=== PATIENT | male | born 1965 | race Caucasian/White ===

== ENCOUNTER 2019-01-25 11:18 | Emergency (ER) | payer MEDICARE ==
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
[2019-01-25] MEDS ORDERED: Sodium Chloride 0.9% 10 ML Syringe FLUSH PRN (13:14)
[2019-01-25] MEDS ORDERED: Naloxone 0.4 MG/ML SDV IVPUSH PRN (14:00)
--- NOTE | 2019-01-25 14:25 | CRLCR ---
HISTORY: Behavioral changes. TECHNIQUE: Two views of the chest. COMPARISON: No prior. FINDINGS: Cardiac size and pulmonary vasculature within normal limits. There is no acute lung infiltrate or pulmonary edema. No pneumothorax or pleural effusion. No acute bony abnormality. IMPRESSION: No acute disease. Dictated by José Schofield MD @ 01/25/2019 2:24:58 PM Dictated by: José Schofield MD @ 01/25/2019 14:25:01 (Electronically Signed)
== END 2019-01-25 20:20 | disposition home or self-care (01) ==
LOC: JP.ED 11:18
DX: F43.9 Reaction to severe stress, unspecified (principal); F32.9 Major depressive disorder, single episode, unspecified; I10 Essential (primary) hypertension; E11.42 Type 2 diabetes mellitus with diabetic polyneuropathy; E78.00 Pure hypercholesterolemia, unspecified; F41.0 Panic disorder [episodic paroxysmal anxiety]; M19.90 Unspecified osteoarthritis, unspecified site; F17.210 Nicotine dependence, cigarettes, uncomplicated; Z79.84 Long term (current) use of oral hypoglycemic drugs; Z79.899 Other long term (current) drug therapy; Z88.8 Allergy status to other drugs, medicaments and biological substances
CPT/HCPCS: 36415; 71046; 80048; 80076; 80305; 81001; 82140; 82550; 83690; 83735; 84439; 84443; 84484; 85025; 93005; 96374; 99284; G0480; J2310; 93010; 99283

== ENCOUNTER 2019-01-27 17:41 | Emergency (ER) | payer MEDICARE ==
--- NOTE | 2019-01-27 20:32 | EDM.PDOCBH ---
<Muna Baez - Last Filed: 01/27/19 20:24> ED HPI GENERAL MEDICAL PROBLEM - General Chief Complaint: Behavioral/Psych Stated Complaint: EVAL Time Seen by Provider: 01/27/19 17:55 Source of Information: Reports: Patient History Limitations: Reports: No Limitations - History of Present Illness INITIAL COMMENTS - FREE TEXT/NARRATIVE: pt arrived with a history of not being able to funtion. He has not eaten for the past 2 days. He has been off of his meds for at least 4 days. He does not have a good grasp on his medication list. He is not able to help with duties that he would be expected to. Pt has had periods in the past that has required hospitalization. Onset: Gradual, Other ( He has been very flat and not communicating for the past ) Duration: Hour(s): Location: Reports: Generalized Associated Symptoms: Reports: No Other Symptoms - Related Data Allergies Allergy/AdvReac Type Severity Reaction Status Date / Time lisinopril Allergy Other Verified 01/27/19 17:54 Home Meds: Home Meds DULoxetine [Cymbalta] 20 mg PO DAILY 01/25/19 [History] Gabapentin [Neurontin] 900 mg PO TID 01/25/19 [History] Minocycline [Minocin] 100 mg PO BID 01/25/19 [History] Prazosin HCl [Prazosin] 4 mg PO BEDTIME 01/25/19 [History] amLODIPine [Norvasc] 5 mg PO DAILY 01/25/19 [History] atorvaSTATin [Lipitor] 10 mg PO BEDTIME 01/25/19 [History] metFORMIN HCl [Metformin HCl ER] 500 mg PO DAILY 01/25/19 [History] Past Medical History HEENT History: Reports: Impaired Vision Cardiovascular History: Reports: High Cholesterol, Hypertension Musculoskeletal History: Reports: Arthritis, Fracture Other Musculoskeletal History: l Neurological History: Reports: Concussion, Head Trauma, Neuropathy, Diabetic, Neuropathy, Peripheral Psychiatric History: Reports: ADD, ADHD, Anxiety, Bipolar, Panic Attack, Psych Hospitalization(s), PTSD, Suicide Attempt, Suicidal Ideation Other Psychiatric History: Alcohol Endocrine/Metabolic History: Reports: Diabetes, Type II Dermatologic History: Reports: Venous Stasis Dermatitis Other Dermatologic History: acne - Past Surgical History Head Surgeries/Procedures: Reports: None HEENT Surgical History: Reports: None Cardiovascular Surgical History: Reports: None Musculoskeletal Surgical History: Reports: Other (See Below) Other Musculoskeletal Surgeries/Procedures:: facial Dermatological Surgical History: Reports: None Social & Family History - Tobacco Use Smoking Status *Q: Current Every Day Smoker Years of Tobacco use: 35 Packs/Tins Daily: 1 Used Tobacco, but Quit: No - Caffeine Use Caffeine Use: Reports: Coffee, Soda - Recreational Drug Use Recreational Drug Use: No ED ROS GENERAL - Review of Systems Review Of Systems: See Below Constitutional: Reports: No Symptoms HEENT: Reports: No Symptoms Respiratory: Reports: No Symptoms Cardiovascular: Reports: No Symptoms Endocrine: Reports: No Symptoms GI/Abdominal: Reports: No Symptoms : Reports: No Symptoms Musculoskeletal: Reports: No Symptoms Skin: Reports: No Symptoms Neurological: Reports: No Symptoms Psychiatric: Reports: Depression, Other ( affect is very flat. ) ED EXAM, BEHAVIORAL HEALTH - Physical Exam Exam: See Below Text/Narrative:: pt arrived with a history of not comunicating or funtioning at home . He has not taken his meds for about 4 days. He Has not eaten for 2 days. His girlfriend feels that she is not able to deal with him and did have law enforcement come and pick him up. Exam Limited By: No Limitations General Appearance: Alert, Anxious, Mild Distress, Other (p is not communicating well with anyone, He is very flat with his affect. ) Ears: Normal TMs Nose: Normal Inspection Throat/Mouth: Normal Inspection Head: Atraumatic Neck: Normal Inspection Respiratory/Chest: No Respiratory Distress Cardiovascular: Regular Rate, Rhythm GI/Abdominal: Soft, Non-Tender (Male) Exam: Deferred Rectal (Males) Exam: Deferred Back Exam: Normal Inspection Extremities: Normal Inspection Neurological: Alert, Other (pt is not communicating well. ) Psychiatric: Depressed Mood, Flat Affect, Other (pt does deny being suicidal. ) COURSE, BEHAVIORAL HEALTH COMP - Course Vital Signs: Last Vital Signs Temp 36.6 C 01/27/19 17:57 Pulse 79 01/27/19 17:57 Resp 16 01/27/19 17:57 BP 125/93 H 01/27/19 17:57 Pulse Ox 100 01/27/19 17:57 Medical Clearance: 01/27/19 20:39 An attempt was made to place the pt at [facility] and he would not talk to them and assure them that he was a good admission so he was not accepted. He wants to go home and claims he will make an ppt as suggested. His girlfriend was called and she is not able to deal with him in the state of mind that he is in. He does not meet criteria for other placement other than voluntary placement. Departure - Departure Time of Disposition: 20:42 Disposition: Home, Self-Care 01 Condition: Poor Clinical Impression: Depression, Noncompliance by refusing intervention or support - Discharge Information Instructions: Major Depressive Disorder, Adult, [id number] Referrals: PCP,None [Primary Care Provider] - Forms: ED Department Discharge Care Plan Goals: pt will be sent home with the officer. He needs to get back on his meds, make appts for outpt care and evaluation. He had a full workup lab max on the Jan. <Argentina Kang - Last Filed: 01/28/19 12:49> COURSE, BEHAVIORAL HEALTH COMP - Course Medical Clearance: Patient's significant other, BELLA called about his lack of interest in caring for himself, eating showering and wandering without goal. Patient was assessed in the ER twice over the weekend. We attempted to get placement but patient declined speaking to the accepting facility. Patient is not an immediate risk to self or others therefore, cannot be legally be held against his will, if he does not want treatment or care. 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 Patient is not hallucinating or acutely psychotic. Patient is alert and cooperative with any assessment or evaluation during past ER visit. Patient was brought to ER twice by law enforcement and discharged back home and transported by law enforcement. Patient's significant other was very frustrated with the situation she found herself in with Singh. I encouraged Bella to call the local mental health facilities on Monday for assessment with mental health professional whom can determine need for inpatient or outpatient treatment when risk cannot be established without patient's consent. Bella was encouraged to take him to the [facility] , whom has access to inpatient mental sadi professionals and adult mental health unit. [facility] has no additional resources to offer to assist with patient's mental health needs and concerns. Patient may indeed need inpatient mental health care for lack of interest in self care and inability to make decisions. 01/28/19 12:37
== END 2019-01-27 21:00 | disposition home or self-care (01) ==
LOC: JP.ED 17:41
DX: F32.9 Major depressive disorder, single episode, unspecified (principal); Z91.19 Patient's noncompliance with other medical treatment and regimen; I10 Essential (primary) hypertension; E11.9 Type 2 diabetes mellitus without complications; Z88.8 Allergy status to other drugs, medicaments and biological substances; F17.210 Nicotine dependence, cigarettes, uncomplicated; Z79.84 Long term (current) use of oral hypoglycemic drugs; Z79.899 Other long term (current) drug therapy
CPT/HCPCS: 99283

== ENCOUNTER 2019-02-01 17:41 | Emergency (ER) | payer MEDICARE | END 2019-02-01 18:58 | disposition left against medical advice (07) | LOC: JP.ED 17:41 | DX: Z53.21 Procedure and treatment not carried out due to patient leaving prior to being seen by health care provider (principal) ==

== ENCOUNTER 2019-03-05 12:07 | Emergency (ER) | payer MEDICARE ==
--- NOTE | 2019-03-05 13:02 | EDM.PDOCBH ---
ED HPI GENERAL MEDICAL PROBLEM - General Chief Complaint: Behavioral/Psych Stated Complaint: PSYC EVAL Time Seen by Provider: 03/05/19 12:46 Source of Information: Reports: Patient, Old Records, Police, RN Notes Reviewed History Limitations: Reports: No Limitations - History of Present Illness INITIAL COMMENTS - FREE TEXT/NARRATIVE: 54-year-old gentleman presents emergency department today via law enforcement for psychiatric evaluation. He was recently in the emergency department on January 27 for psychiatric evaluation felt to have severe depression and homelessness attempted to find placement for him but were unsuccessful subsequently discharged back to his home that he was currently renting a via law enforcement. He had rented a trailer house at a local resort unfortunately the resort is now closing due to winter therefore law enforcement was called for placement of this gentleman. He denies any suicidal ideation or homicidal ideation does admit to depression is not forthcoming with answers. - Related Data Allergies Allergy/AdvReac Type Severity Reaction Status Date / Time lisinopril Allergy Mild Other Verified 03/05/19 12:24 Home Meds: Home Meds DULoxetine [Cymbalta] 20 mg PO DAILY 01/25/19 [History] Gabapentin [Neurontin] 900 mg PO TID 01/25/19 [History] Minocycline [Minocin] 100 mg PO BID 01/25/19 [History] Prazosin HCl [Prazosin] 4 mg PO BEDTIME 01/25/19 [History] amLODIPine [Norvasc] 5 mg PO DAILY 01/25/19 [History] atorvaSTATin [Lipitor] 10 mg PO BEDTIME 01/25/19 [History] metFORMIN HCl [Metformin HCl ER] 500 mg PO DAILY 01/25/19 [History] Past Medical History HEENT History: Reports: Impaired Vision Cardiovascular History: Reports: High Cholesterol, Hypertension Musculoskeletal History: Reports: Arthritis, Fracture Other Musculoskeletal History: l Neurological History: Reports: Concussion, Head Trauma, Neuropathy, Diabetic, Neuropathy, Peripheral Psychiatric History: Reports: ADD, ADHD, Anxiety, Bipolar, Panic Attack, Psych Hospitalization(s), PTSD, Suicide Attempt, Suicidal Ideation Other Psychiatric History: Alcohol Endocrine/Metabolic History: Reports: Diabetes, Type II Dermatologic History: Reports: Venous Stasis Dermatitis Other Dermatologic History: acne - Past Surgical History Head Surgeries/Procedures: Reports: None HEENT Surgical History: Reports: None Cardiovascular Surgical History: Reports: None Musculoskeletal Surgical History: Reports: Other (See Below) Other Musculoskeletal Surgeries/Procedures:: facial Dermatological Surgical History: Reports: None Social & Family History - Tobacco Use Smoking Status *Q: Current Every Day Smoker Years of Tobacco use: 30 Packs/Tins Daily: 1 Used Tobacco, but Quit: No - Caffeine Use Caffeine Use: Reports: Coffee, Soda - Recreational Drug Use Recreational Drug Use: No ED ROS GENERAL - Review of Systems Review Of Systems: See Below Constitutional: Reports: No Symptoms HEENT: Reports: No Symptoms Respiratory: Reports: No Symptoms Cardiovascular: Reports: No Symptoms GI/Abdominal: Reports: No Symptoms Psychiatric: Reports: Depression. Denies: Homicidal Ideation, Suicidal Ideation ED EXAM, BEHAVIORAL HEALTH - Physical Exam Exam: See Below Text/Narrative:: Orientated to person place and time, appropriately dressed, poorly groomed, memory to recent and remote events intact, poor attention and concentration, speech is of adequate rate tone and volume, good fund of knowledge, language is appropriate, Mood and affect are depressed, no pressured thoughts, denies suicidal ideation, denies homicidal ideation, no hallucinations visual or auditory, poor judgment, poor insight Exam Limited By: No Limitations General Appearance: Alert, WD/WN, No Apparent Distress Respiratory/Chest: No Respiratory Distress COURSE, BEHAVIORAL HEALTH COMP - Course Vital Signs: Last Vital Signs Temp 97.2 F 03/05/19 12:35 Pulse 121 H 03/05/19 12:35 Resp 16 03/05/19 12:35 BP 122/93 H 03/05/19 12:35 Pulse Ox 91 L 03/05/19 12:35 Orders, Labs, Meds: Laboratory Tests 03/05/19 03/05/19 03/05/19 Range/Units 13:39 13:39 13:40 WBC 10.1 (4.5-11.0) K/uL RBC 6.31 H (4.30-5.90) M/uL Hgb 18.2 H* (12.0-15.0) g/dL Hct 55.3 H (40.0-54.0) % MCV 88 (80-98) fL MCH 29 (27-31) pg MCHC 33 (32-36) % Plt Count 274 (150-400) K/uL Neut % (Auto) 71 H (36-66) % Lymph % (Auto) 20 L (24-44) % [place] % (Auto) 7 H (2-6) % Eos % (Auto) 1 L (2-4) % Baso % (Auto) 1 (0-1) % Sodium 140 (140-148) mmol/L Potassium 3.7 (3.6-5.2) mmol/L Chloride 99 L (100-108) mmol/L Carbon Dioxide 25 (21-32) mmol/L Anion Gap 19.7 H (5.0-14.0) mmol/L BUN 21 H (7-18) mg/dL Creatinine 1.1 (0.8-1.3) mg/dL Est Cr Clr Drug Dosing TNP Estimated GFR (MDRD) > 60 (>60) Glucose 112 H (74-106) mg/dL Calcium 9.9 (8.5-10.1) mg/dL Total Bilirubin 1.4 H D (0.2-1.0) mg/dL AST 19 (15-37) U/L ALT 26 (12-78) U/L Alkaline Phosphatase 93 (46-116) U/L Total Protein 8.3 H (6.4-8.2) g/dL Albumin 4.5 (3.4-5.0) g/dL Globulin 3.8 H (2.3-3.5) g/dL Albumin/Globulin Ratio 1.2 (1.2-2.2) TSH, Ultra Sensitive 1.021 (0.358-3.740) uIU/mL Urine Opiates Screen Negative (NEGATIVE) Ur Oxycodone Screen Negative (NEGATIVE) Urine Methadone Screen Negative (NEGATIVE) Ur Propoxyphene Screen Negative (NEGATIVE) Ur Barbiturates Screen Negative (NEGATIVE) Ur Tricyclics Screen Negative (NEGATIVE) Ur Phencyclidine Scrn Negative (NEGATIVE) Ur Amphetamine Screen Negative (NEGATIVE) U Methamphetamines Scrn Negative (NEGATIVE) Urine MDMA Screen Negative (NEGATIVE) U Benzodiazepines Scrn Negative (NEGATIVE) U Cocaine Metab Screen Negative (NEGATIVE) U Marijuana (THC) Screen Negative (NEGATIVE) Ethyl Alcohol mg/dL 03/05/19 Range/Units 14:36 WBC (4.5-11.0) K/uL RBC (4.30-5.90) M/uL Hgb (12.0-15.0) g/dL Hct (40.0-54.0) % MCV (80-98) fL MCH (27-31) pg MCHC (32-36) % Plt Count (150-400) K/uL Neut % (Auto) (36-66) % Lymph % (Auto) (24-44) % [place] % (Auto) (2-6) % Eos % (Auto) (2-4) % Baso % (Auto) (0-1) % Sodium (140-148) mmol/L Potassium (3.6-5.2) mmol/L Chloride (100-108) mmol/L Carbon Dioxide (21-32) mmol/L Anion Gap (5.0-14.0) mmol/L BUN (7-18) mg/dL Creatinine (0.8-1.3) mg/dL Est Cr Clr Drug Dosing Estimated GFR (MDRD) (>60) Glucose (74-106) mg/dL Calcium (8.5-10.1) mg/dL Total Bilirubin (0.2-1.0) mg/dL AST (15-37) U/L ALT (12-78) U/L Alkaline Phosphatase (46-116) U/L Total Protein (6.4-8.2) g/dL Albumin (3.4-5.0) g/dL Globulin (2.3-3.5) g/dL Albumin/Globulin Ratio (1.2-2.2) TSH, Ultra Sensitive (0.358-3.740) uIU/mL Urine Opiates Screen (NEGATIVE) Ur Oxycodone Screen (NEGATIVE) Urine Methadone Screen (NEGATIVE) Ur Propoxyphene Screen (NEGATIVE) Ur Barbiturates Screen (NEGATIVE) Ur Tricyclics Screen (NEGATIVE) Ur Phencyclidine Scrn (NEGATIVE) Ur Amphetamine Screen (NEGATIVE) U Methamphetamines Scrn (NEGATIVE) Urine MDMA Screen (NEGATIVE) U Benzodiazepines Scrn (NEGATIVE) U Cocaine Metab Screen (NEGATIVE) U Marijuana (THC) Screen (NEGATIVE) Ethyl Alcohol < 3 mg/dL Departure - Departure Time of Disposition: 18:00 Disposition: DC/Tfer to Psych Hosp/Unit 65 Condition: Fair Clinical Impression: Depression, major Qualifiers: Major depression recurrence: recurrent Active/Remission status: currently active Major depression episode severity: severe Psychotic features: without psychotic features Qualified Code(s): F33.2 - Major depressive disorder, recurrent severe without psychotic features - Discharge Information Referrals: PCP,None [Primary Care Provider] - Forms: ED Department Discharge - Assessment/Plan Plan: Assessment Acuity = acute Site and laterality = major depressive disorder Etiology = unknown Manifestations = none Location of injury = Home Lab values = CBC, CMP, urine drug screen and alcohol negative thyroid negative Plan We did gain acceptance at [facility] [address] he'll be transported via psychiatric transport This note was dictated using [employer] voice recognition software please call with any questions on syntax or grammar.
== END 2019-03-05 20:49 ==
LOC: JP.ED 12:07
DX: F33.2 Major depressive disorder, recurrent severe without psychotic features (principal)
CPT/HCPCS: 36415; 80053; 80305; 84443; 85025; 99283; 99284; G0480